=== PATIENT | male | born 1955 | race Caucasian/White ===

== ENCOUNTER 2016-11-13 08:44 | Inpatient (IN) | payer OTHER, SELFPAY ==
[~2016-11-13 08:44] MED LIST: AMIODARONE HCL200 M1 PO; ASPIR 8181 M1 PO; ATIVAN0.5 M1 PO; ATORVASTATIN CA20 M1 PO; COLACE100 M1 PO; COMBIVENT RESPIM4 G1 INH; COREG3.125 M1 PO; FEOSOL325 M1 PO; FLEXERIL10 MG PO; FLOVENT DISKUS50 MCG IH; HYDROCODON-ACE1 EA16 PO; HYDROCORTISON28.4 G2 TP; KEFLEX500 M4 PO; KLOR-CON M20 MEQ/TAB PO; LASIX40 M1 PO; LEVAQUIN750 M1 PO; MUCUS RELIEF600 M1 PO; NORCO 5-325 TA1 EACH PO; NORCO 5/325 TAB1 TAB PO; NYSTATIN-TRIAMC15 G2 TP; ULTRAM50 M1 PO; XARELTO20 M1 PO; ZOLOFT50 M1 PO
[2016-11-13 17:15] LABS: BASO % 0.4 % (0-2); EOS % 5.6 % (0-7); EOSINOPHIL ABSOLUTE COUNT 0.6 tho/cmm (0.0-0.7); HCT-HEMATOCRIT 36.3 % (36.0-53.5); HGB-HEMOGLOBIN 11.3 gm/dl (13.5-17.0); IMMATURE GRANULOCYTES ABSOLUTE 0.04 tho/cmm (0-0.03); IMMATURE GRANULOCYTES PERCENT 0.4 % (0-0.3); LYMPH % 18.9 % (20-45); LYMPH ABSOLUTE COUNT 1.8 tho/cmm (0.8-4.5); MCH (MEAN CORPUSCULAR HGB) 25.4 pg (28.0-32.0); MCHC MEAN CORPUSCULAR HGB CONC 31.1 % (32.0-36.0); MCV (MEAN CELL VOLUME) 81.6 fl (82.0-96.0); MEAN PLATELET VOLUME 8.4 cmc (9.4-12.4); MONO % 11.3 % (0-12); MONOCYTE ABSOLUTE COUNT 1.1 tho/cmm (0.0-1.2); NEUTROPHIL ABSOLUTE COUNT 6.2 tho/cmm (1.6-8.0); NEUTROPHIL-AUTOMATED 6.2 tho/cmm (1.6-8.0); NEUTROPHILS % 63.4 % (40-80); PLATELET COUNT 449 tho/cmm (150-450); RED BLOOD COUNT 4.45 mil/cmm (4.40-5.70); RED CELL DISTRIBUTION WIDTH 14.8 % (12.4-16.4); WHITE BLOOD COUNT 9.8 tho/cmm (4.0-10.0)
[2016-11-13 17:19] LABS: INR 1.2 INR (0.9-1.1); PROTHROMBIN TIME 13.9 SECONDS (9.0-13.6)
[2016-11-13 17:33] LABS: ALB/GLOB RATIO 0.5 (0.8-2.0); ALKALINE PHOSPHATASE 96 U/L (33-138); ALT/SGPT 14 U/L (12-78); ANION GAP 9 mmol/L (0-20); AST/SGOT 13 U/L (10-40); BILIRUBIN,TOTAL 0.4 mg/dl (0.0-1.5); BLOOD UREA NITROGEN 13 mg/dl (6-24); CALCIUM 8.8 mg/dl (8.5-10.5); CARBON DIOXIDE-VENOUS 34 mmol/L (22-32); CHLORIDE 102 mmol/l (96-110); CREATININE 1.14 mg/dl (0.60-1.30); GLUCOSE 105 mg/dL (70-110); PREALBUMIN 18.4 mg/dl (20.0-40.0); SODIUM 141 mmol/L (135-145); eGFR VALUE FOR BLACK 79 mL/Min
[2016-11-14 06:15] LABS: BASO % 0.3 % (0-2); EOS % 10.2 % (0-7); EOSINOPHIL ABSOLUTE COUNT 0.9 tho/cmm (0.0-0.7); HCT-HEMATOCRIT 32.9 % (36.0-53.5); HGB-HEMOGLOBIN 10.1 gm/dl (13.5-17.0); IMMATURE GRANULOCYTES ABSOLUTE 0.04 tho/cmm (0-0.03); IMMATURE GRANULOCYTES PERCENT 0.5 % (0-0.3); LYMPH % 22.6 % (20-45); MCH (MEAN CORPUSCULAR HGB) 25.2 pg (28.0-32.0); MCHC MEAN CORPUSCULAR HGB CONC 30.7 % (32.0-36.0); MEAN PLATELET VOLUME 8.3 cmc (9.4-12.4); MONO % 13.1 % (0-12); MONOCYTE ABSOLUTE COUNT 1.2 tho/cmm (0.0-1.2); NEUTROPHIL ABSOLUTE COUNT 4.7 tho/cmm (1.6-8.0); NEUTROPHIL-AUTOMATED 4.7 tho/cmm (1.6-8.0); NEUTROPHILS % 53.3 % (40-80); PLATELET COUNT 393 tho/cmm (150-450); RED BLOOD COUNT 4.01 mil/cmm (4.40-5.70); WHITE BLOOD COUNT 8.8 tho/cmm (4.0-10.0)
[2016-11-14 11:21] LABS: INR 1.1 INR (0.9-1.1); PROTHROMBIN TIME 12.9 SECONDS (9.0-13.6)
[2016-11-14 11:26] LABS: HGB-HEMOGLOBIN 11.9 gm/dl (13.5-17.0); PLATELET COUNT 453 tho/cmm (150-450)
[2016-11-14 11:30] LABS: CREATININE 1.27 mg/dl (0.60-1.30); eGFR VALUE FOR BLACK 70 mL/Min
[2016-11-16 06:10] LABS: BASO % 0.4 % (0-2); EOSINOPHIL ABSOLUTE COUNT 1.1 tho/cmm (0.0-0.7); HCT-HEMATOCRIT 28.9 % (36.0-53.5); IMMATURE GRANULOCYTES ABSOLUTE 0.05 tho/cmm (0-0.03); IMMATURE GRANULOCYTES PERCENT 0.5 % (0-0.3); LYMPH % 19.3 % (20-45); LYMPH ABSOLUTE COUNT 1.9 tho/cmm (0.8-4.5); MCHC MEAN CORPUSCULAR HGB CONC 30.8 % (32.0-36.0); MCV (MEAN CELL VOLUME) 81.4 fl (82.0-96.0); MEAN PLATELET VOLUME 8.4 cmc (9.4-12.4); MONO % 15.1 % (0-12); MONOCYTE ABSOLUTE COUNT 1.5 tho/cmm (0.0-1.2); NEUTROPHIL ABSOLUTE COUNT 5.3 tho/cmm (1.6-8.0); NEUTROPHIL-AUTOMATED 5.3 tho/cmm (1.6-8.0); NEUTROPHILS % 53.7 % (40-80); PLATELET COUNT 407 tho/cmm (150-450); RED BLOOD COUNT 3.55 mil/cmm (4.40-5.70); RED CELL DISTRIBUTION WIDTH 15.1 % (12.4-16.4); WHITE BLOOD COUNT 9.8 tho/cmm (4.0-10.0)
[2016-11-16 06:13] LABS: HGB-HEMOGLOBIN 8.9 gm/dl (13.5-17.0)
[2016-11-16 06:33] LABS: ANION GAP 11 mmol/L (0-20); BLOOD UREA NITROGEN 25 mg/dl (6-24); CALCIUM 8.2 mg/dl (8.5-10.5); CARBON DIOXIDE-VENOUS 35 mmol/L (22-32); CHLORIDE 98 mmol/l (96-110); CREATININE 1.16 mg/dl (0.60-1.30); GLUCOSE 96 mg/dL (70-110); POTASSIUM 3.8 mmol/L (3.7-5.1); SODIUM 140 mmol/L (135-145); eGFR VALUE FOR BLACK 78 mL/Min
[2016-11-19] MEDS ORDERED: BACTRIM DS TAB1 EAC2 PO (15:03)
[2016-11-20 02:07] LABS: CREATININE 1.16 mg/dl (0.60-1.30); eGFR VALUE FOR BLACK 78 mL/Min
--- NOTE | 2016-11-26 05:17 | NUR ---
RN COMPLETED HOURLY ROUNDING OBERVING THIS PATIENT EVERY HOUR THIS SHIFT.
[2016-11-27] MEDS ORDERED: NORCO 5-325 TA1 EACH PO (07:23)
[2017-04-10] MEDS ORDERED: COMBIVENT RESPIM4 G1 INH (00:22)
== END 2016-11-27 11:05 | DRG 264 ==
LOC: WCC 08:44 → BURN 11:44
PROVIDERS: Family Medicine; Surgery; ADMIT Surgery
PROC: 05H633Z Insertion of Infusion Device into Left Subclavian Vein, Percutaneous Approach (ICD-10-PCS; 2016-11-13)
PROC: 0HRLXK3 Replacement of Left Lower Leg Skin with Nonautologous Tissue Substitute, Full Thickness, External Approach (ICD-10-PCS; principal; 2016-11-26)
PROC: 0HRKXK3 Replacement of Right Lower Leg Skin with Nonautologous Tissue Substitute, Full Thickness, External Approach (ICD-10-PCS; 2016-11-26)
PROC: 2W1MX6Z Compression of Left Lower Extremity using Pressure Dressing (ICD-10-PCS; 2016-11-26)
PROC: 2W1LX6Z Compression of Right Lower Extremity using Pressure Dressing (ICD-10-PCS; 2016-11-26)
DX: I83.009 Varicose veins of unspecified lower extremity with ulcer of unspecified site (principal); L03.115 Cellulitis of right lower limb; L97.919 Non-pressure chronic ulcer of unspecified part of right lower leg with unspecified severity; L97.929 Non-pressure chronic ulcer of unspecified part of left lower leg with unspecified severity; L03.116 Cellulitis of left lower limb; I25.10 Atherosclerotic heart disease of native coronary artery without angina pectoris; I73.89 Other specified peripheral vascular diseases; B95.62 Methicillin resistant Staphylococcus aureus infection as the cause of diseases classified elsewhere; I87.2 Venous insufficiency (chronic) (peripheral)
CPT/HCPCS: C1751; J1940; J3370; J7050; Q4102